=== PATIENT | female | born 1960 | race African-American/Black ===

== ENCOUNTER 2017-08-13 12:39 | Emergency (ER) | payer OTHER ==
[2017-08-13 12:45] VITALS: BP 113/74; PULSE 80; TEMP 98.5; BMI 22.1
--- NOTE | 2017-08-13 14:52 | PDOC ---
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 She states that something was painted in a closed room and she walked in, smelling the paint. No SOB, cp. No vision changes. No recent headaches.
--- NOTE | 2017-08-13 15:07 | PDOC ---
History of Present Illness - General Chief Complaint: Lightheaded Stated Complaint: DIZZINESS (WORK RELATED) Time Seen by Provider: 08/13/17 14:50 - History of Present Illness Initial Comments: 08/13/17 15:03 Patient is a 57 y.o. female with a PMH of Hypothyroidism, TIA, and Vertigo who presents to our ED today following an acute onset of lightheadedness and palpitations following inhalation of paint can fumes. 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 Patient denies any associated dypsnea, chest pain, or trauma. Patient states her palpitations resolved after 20 minutes of rest however she remains lightheaded prompting her visit to the ED. Allergies: IV contrast Surgical: Tubal Ligation Past History - Past Medical History Allergies/Adverse Reactions: Allergies Allergy/AdvReac Type Severity Reaction Status Date / Time Iodinated Contrast- Oral and Allergy Mild Hives Verified 08/13/17 12:44 IV Dye [IV Dye, Iodine Containing Contrast ] iodine Allergy Mild Hives Verified 08/13/17 12:44 Home Medications: Ambulatory Orders Diazepam [Valium] 5 mg PO BID PRN #6 tablet 03/20/12 Ibuprofen [Motrin] 400 mg PO QID PRN #20 tablet 03/20/12 Levothyroxine [Synthroid] 100 mcg PO DAILY 03/20/12 CVA: Yes (tia in 2003 no residual, VERTIGO) COPD: No Thyroid Disease: Yes - Suicide/Smoking/Psychosocial Hx Smoking Status: No Smoking History: Never smoked Number of Cigarettes Smoked Daily: 0 Hx Alcohol Use: No Drug/Substance Use Hx: No Substance Use Type: None Review of Systems - Review of Systems Constitutional: No: Chills, Fever HEENTM: No: Blurred Vision, Double Vision Respiratory: No: Shortness of Breath Cardiac (ROS): Yes: Lightheadedness, Palpitations ABD/GI: No: Constipated, Diarrhea, Nausea, Vomiting *Physical Exam - Vital Signs Last Vital Signs Temp Pulse Resp BP Pulse Ox 98.5 F 80 20 113/74 99 08/13/17 12:41 08/13/17 12:41 08/13/17 12:41 08/13/17 12:41 08/13/17 12:41 - Physical Exam General Appearance: Yes: Nourished, Appropriately Dressed HEENT: positive: EOMI, REBECA Neck: positive: Trachea midline, Supple Respiratory/Chest: positive: Lungs Clear Cardiovascular: positive: S1, S2 Gastrointestinal/Abdominal: positive: Normal Bowel Sounds, Soft Extremity: positive: Normal Capillary Refill, Normal Inspection, Normal Range of Motion Integumentary: positive: Normal Color, Dry, Warm Neurologic: positive: firearms sales associate II-XII NML intact, Fully Oriented, Alert, Motor Strength 5/5 Medical Decision Making - Medical Decision Making 08/13/17 15:13 Patient is a 57 y.o. female who presents to our ED after an isolated episode of lightheadedness and palpitation after inhaling paint fumes. On PE patient is hemodynamically and neurologically stable. Will obtain EKG to r/o arrythmia and ABG to r/o Carboxy/Methoglobenemia. Likely disposition is discharge home. 08/13/17 17:31 ABG shows O2 Saturation of 97%. EKG shows sinus bradycardia with no deviations , normal intervals, no ST changes, good R wave progression V1-V6. Patient to be discharged home with return precautions and instruction to f/u with PCP. *DC/Admit/Observation/Transfer Diagnosis at time of Disposition: Light-headed feeling - Discharge Dispostion Disposition: HOME Condition at time of disposition: Good Admit: No - Referrals - Patient Instructions Additional Instructions: Please return to the Emergency Department for any new/worsening/concerning symptoms. - Post Discharge Activity
[2017-08-13 16:11] LABS: ARTERIAL BLD GAS O2 SATURATION 97.4 % (90-98.9); ARTERIAL BLOOD GAS BASE EXCESS 0.3 meq/l (-2-2); ARTERIAL BLOOD GAS PCO2 40.7 mmHg (35-45); ARTERIAL BLOOD GAS PO2 92.5 mmHg (80-100)
[2017-08-13 16:13] LABS: ALLENS TEST POSITIVE
--- NOTE | 2017-08-14 12:32 | EKG ---
Test Reason : Blood Pressure : / mmHG Vent. Rate : 058 BPM Atrial Rate : 058 BPM P-R Int : 164 ms QRS Dur : 076 ms QT Int : 450 ms P-R-T Axes : 068 -06 033 degrees QTc Int : 441 ms SINUS BRADYCARDIA OTHERWISE NORMAL ECG WHEN COMPARED WITH ECG OF 20-MAR-2012 09:48, NO SIGNIFICANT CHANGE WAS FOUND Confirmed by PALOMA PÉREZ MD ([id number]) on 08/14/2017 12:31:57 PM Referred By: Confirmed By:PALOMA PÉREZ MD
== END 2017-08-13 18:02 | disposition home or self-care (01) ==
LOC: JER 12:39
DX: T59.891A Toxic effect of other specified gases, fumes and vapors, accidental (unintentional), initial encounter (principal); Y92.218 Other school as the place of occurrence of the external cause; Y93.89 Activity, other specified; Y99.0 Civilian activity done for income or pay
CPT/HCPCS: 36600; 82803; 93005; 93010; 99282-25

== ENCOUNTER 2019-04-17 18:28 | Emergency (ER) | payer BC ==
[2019-04-17 18:36] VITALS: BP 110/67; PULSE 63; TEMP 98.2; BMI 23.6
[2019-04-17] MEDS ORDERED: IBUPROFEN 600 MG TABLET (FP) PO ONE ×2 (20:06→20:11)
--- NOTE | 2019-04-17 20:11 | PDOC ---
History of Present Illness - General Chief Complaint: Pain Stated Complaint: X-RAY Time Seen by Provider: 04/17/19 18:42 History Source: Patient Exam Limitations: No Limitations Past History - Past Medical History Allergies/Adverse Reactions: Allergies Allergy/AdvReac Type Severity Reaction Status Date / Time Iodinated Contrast Media Allergy Mild Hives Verified 04/17/19 18:36 [IV Dye, Iodine Containing Contrast ] iodine Allergy Mild Hives Verified 04/17/19 18:36 IV dye Allergy Severe Uncoded 04/17/19 18:36 Home Medications: Ambulatory Orders Ibuprofen [Motrin -] 400 mg PO QID PRN #20 tablet 03/20/12 Levothyroxine [Synthroid -] 75 mcg PO DAILY 04/04/13 Meclizine HCl [Antivert -] 12.5 mg PO TID PRN #60 tablet 07/30/17 Cholecalciferol (Vitamin D3) [Vitamin D3 -] 10,000 unit PO UTDICT 09/16/17 Lobito-Essence 1 tab PO DAILY 09/16/17 [place]-3/Dha/Epa/Fish Oil [[place] 3 500 Softgel] 1 cap PO DAILY 09/16/17 Serovital 4 tab PO DAILY 09/16/17 Vistacal 1 tab PO BID 09/16/17 Anemia: No Asthma: No Cancer: No Cardiac Disorders: Yes (LOOP VALVE) CVA: Yes (TIA in 2003 no residual, VERTIGO) COPD: No CHF: No Dementia: No Diabetes: No GI Disorders: No Disorders: No HTN: No Hypercholesterolemia: No Liver Disease: No Seizures: No Thyroid Disease: Yes (HYPOTHYROID DISEASE) - Surgical History Abdominal Surgery: No Appendectomy: No Cardiac Surgery: No Cholecystectomy: No Lung Surgery: No Neurologic Surgery: No Orthopedic Surgery: No - Suicide/Smoking/Psychosocial Hx Smoking Status: No Smoking History: Never smoked Number of Cigarettes Smoked Daily: 0 Hx Alcohol Use: Yes Drug/Substance Use Hx: No Substance Use Type: None Hx Substance Use Treatment: No *Physical Exam - Vital Signs Last Vital Signs Temp Pulse Resp BP Pulse Ox 98.2 F 63 16 110/67 97 04/17/19 18:34 04/17/19 18:34 04/17/19 18:34 04/17/19 18:34 04/17/19 18:34 ED Treatment Course - RADIOLOGY Radiology Studies Ordered: Category Date Time Status HAND- RIGHT [RAD] Stat Radiology 04/17/19 18:42 Taken *DC/Admit/Observation/Transfer Diagnosis at time of Disposition: Hand pain, right - Discharge Dispostion Disposition: HOME Condition at time of disposition: Stable Decision to Admit order: No - Referrals Referrals: Paolo Spencer MD [Staff Physician] - - Patient Instructions Printed Discharge Instructions: DI for Hand Pain Additional Instructions: You have wrist pain I suspect it is carpel tunnel Wear the wrist splint at night Take 600mg of Motrin every 6 hours as needed for pain Follow up with orthopedics this week for further treatment options Return to the ER for any new or worsening symptoms - Post Discharge Activity
== END 2019-04-17 20:21 | disposition home or self-care (01) ==
LOC: JERFT 18:28
DX: M79.644 Pain in right finger(s) (principal); I25.10 Atherosclerotic heart disease of native coronary artery without angina pectoris; E03.9 Hypothyroidism, unspecified; Z86.73 Personal history of transient ischemic attack (TIA), and cerebral infarction without residual deficits
CPT/HCPCS: 73130-TC-RT-FY; 99282-25

== ENCOUNTER 2023-03-10 12:39 | Emergency (ER) | payer BC ==
[2023-03-10] MEDS ORDERED: ACETAMINOPHEN 1000 MG/100 ML BAG IVPB ONE (13:42)
[2023-03-10] MEDS ORDERED: SODIUM CHLORIDE 0.9% 500 ML INFUS.BAG IV ONE (13:42)
[2023-03-10] MEDS ORDERED: METOCLOPRAMIDE HCL INJECTION 10 MG/2 ML VIAL IVPUSH ONE (13:42)
[2023-03-10] MEDS ORDERED: LIDOCAINE 5% TOPICAL PATCH TP ONE (13:45)
[2023-03-10 13:49] VITALS: BMI 28.8
[2023-03-10] MEDS ORDERED: METOCLOPRAMIDE HCL INJECTION 10 MG/2 ML VIAL ONE (13:55)
[2023-03-10] MEDS ORDERED: LIDOCAINE 5% TOPICAL PATCH ONE (13:55)
[2023-03-10] MEDS ORDERED: ACETAMINOPHEN INJECTION 100 ML IVPB ONE (13:55)
[2023-03-10] MEDS ORDERED: MECLIZINE HCL 25 MG TABLET (FP) PO ONE ×2 (14:37→20:39)
[2023-03-10 14:42] LABS: BASO % 0.4 % (0-2.0); EOS % 0.1 % (0-4.5); HEMATOCRIT 40.9 % (32.4-45.2); HEMOGLOBIN 13.6 GM/dL (10.7-15.3); LYMPH % 11.1 % (8-40); MCH 33.1 pg (25.7-33.7); MCHC 33.4 g/dl (32.0-36.0); MEAN CELL VOLUME 99.1 fl (80-96); MEAN PLT VOLUME 10.4 fl (7.5-11.1); MONO % 3.6 % (3.8-10.2); NEUT % 84.8 % (42.8-82.8); PLATELET COUNT 234 10^3/uL (134-434); RBC 4.13 M/mm3 (3.60-5.2); WHITE BLOOD COUNT 9.1 K/mm3 (4.0-10.0)
[2023-03-10] MEDS ORDERED: MECLIZINE HCL 25 MG TABLET (FP) ONE ×2 (14:53→20:40)
[2023-03-10 15:02] LABS: POTASSIUM 4.1 mmol/L (3.5-5.1)
[2023-03-10 15:05] LABS: ALBUMIN 4.2 g/dl (3.4-5.0); BLOOD UREA NITROGEN 10.4 mg/dL (7-18); CALCIUM 9.6 mg/dL (8.5-10.1)
[2023-03-10 15:08] LABS: CREATININE 0.9 mg/dL (0.55-1.3)
[2023-03-10 15:35] LABS: PH,URINE 7.5 (5.0-8.0); URINE APPEARANCE CLEAR; URINE BILIRUBIN NEGATIVE (NEGATIVE); URINE COLOR YELLOW; URINE GLUCOSE (UA) NEGATIVE (NEGATIVE); URINE KETONE NEGATIVE (NEGATIVE); URINE LEUK ESTERASE NEGATIVE (NEGATIVE); URINE NITRITE NEGATIVE (NEGATIVE); URINE PROTEIN NEGATIVE (NEGATIVE); URINE UROBILINOGEN 0.2 mg/dL (0.2-1.0)
[2023-03-10 17:37] VITALS: RESP 16
[2023-03-10] MEDS ORDERED: KETOROLAC TROMETHAMINE 15 MG/ML VIAL IVPUSH ONE (18:17)
[2023-03-10] MEDS ORDERED: KETOROLAC TROMETHAMINE 15 MG/ML VIAL ONE (18:25)
[2023-03-10 18:55] VITALS: BP 138/89; PULSE 66; TEMP 98
[2023-03-10] MEDS ORDERED: LIDOCAINE PATCH REMOVAL MC SCH (22:00)
== END 2023-03-10 20:35 | disposition home or self-care (01) ==
LOC: JER 12:39
PROC: 3E033NZ Introduction of Analgesics, Hypnotics, Sedatives into Peripheral Vein, Percutaneous Approach (ICD-10-PCS; principal; 2023-03-10)
PROC: 3E033GC Introduction of Other Therapeutic Substance into Peripheral Vein, Percutaneous Approach (ICD-10-PCS; 2023-03-10)
PROC: 3E033GC Introduction of Other Therapeutic Substance into Peripheral Vein, Percutaneous Approach (ICD-10-PCS; 2023-03-10)
PROC: 3E033GC Introduction of Other Therapeutic Substance into Peripheral Vein, Percutaneous Approach (ICD-10-PCS; 2023-03-10)
DX: R53.1 Weakness (principal); R42 Dizziness and giddiness; R51.9 Headache, unspecified
CPT/HCPCS: 36415; 70450-TC; 71045-TC-FY; 72125-TC; 80053; 81003; 83690; 84484; 85025; 87086; 93005; 93010; 99285-25

== ENCOUNTER 2023-03-16 13:24 | Observation (INO) | payer BC ==
[2023-03-16 13:28] VITALS: BMI 27.4
[2023-03-16] MEDS ORDERED: LACTATED RINGERS SOLUTION 1000 ML INFUS.BAG IV ONE (15:08)
[2023-03-16] MEDS ORDERED: FAMOTIDINE 20 MG/50 ML IVPB 20 MG/50 ML MG IVPB ONE ×2 (15:08→15:56)
[2023-03-16] MEDS ORDERED: METOCLOPRAMIDE HCL INJECTION 10 MG/2 ML VIAL IVPUSH ONE (15:09)
[2023-03-16] MEDS ORDERED: METOCLOPRAMIDE HCL INJECTION 10 MG/2 ML VIAL ONE (15:56)
[2023-03-16 16:38] LABS: BASO % 0.5 % (0-2.0); EOS % 0.1 % (0-4.5); HEMOGLOBIN 13.9 GM/dL (10.7-15.3); LYMPH % 12.8 % (8-40); MCH 33.2 pg (25.7-33.7); MEAN CELL VOLUME 97.8 fl (80-96); MEAN PLT VOLUME 10.1 fl (7.5-11.1); MONO % 3.6 % (3.8-10.2); PLATELET COUNT 242 10^3/uL (134-434); RDW 13.8 % (11.6-15.6); WHITE BLOOD COUNT 6.8 K/mm3 (4.0-10.0)
[2023-03-16 16:51] LABS: INR 1.05 (0.83-1.09); PROTHROMBIN TIME (PATIENT) 12.2 SEC (9.7-13.0)
[2023-03-16 16:54] LABS: ACTIVATED PTT 32.1 SECONDS (25.2-36.5)
[2023-03-16 16:59] LABS: POTASSIUM 4.5 mmol/L (3.5-5.1)
[2023-03-16 17:01] LABS: CALCIUM 9.3 mg/dL (8.5-10.1)
[2023-03-16 17:02] LABS: ALBUMIN 4.3 g/dl (3.4-5.0); BLOOD UREA NITROGEN 12.3 mg/dL (7-18); MAGNESIUM 2.3 mg/dL (1.8-2.4)
[2023-03-16 17:05] LABS: CREATININE 0.9 mg/dL (0.55-1.3)
[2023-03-16 17:06] LABS: BILIRUBIN,TOTAL 0.9 mg/dL (0.2-1); TOT PROT 7.9 g/dl (6.4-8.2)
[2023-03-16] MEDS ORDERED: ACETAMINOPHEN 1000 MG/100 ML BAG IVPB ONE (18:11)
[2023-03-16 18:12] LABS: PH,URINE 6.5 (5.0-8.0); URINE APPEARANCE CLEAR; URINE BILIRUBIN NEGATIVE (NEGATIVE); URINE COLOR YELLOW; URINE GLUCOSE (UA) NEGATIVE (NEGATIVE); URINE KETONE NEGATIVE (NEGATIVE); URINE LEUK ESTERASE NEGATIVE (NEGATIVE); URINE NITRITE NEGATIVE (NEGATIVE); URINE PROTEIN NEGATIVE (NEGATIVE); URINE UROBILINOGEN 0.2 mg/dL (0.2-1.0)
[2023-03-16] MEDS ORDERED: ACETAMINOPHEN INJECTION 100 ML IVPB ONE (18:28)
[2023-03-17] MEDS ORDERED: ACETAMINOPHEN 1000 MG/100 ML BAG IVPB PRN (02:21)
[2023-03-17] MEDS ORDERED: ONDANSETRON 4 MG/2 ML VIAL IVPUSH PRN (02:22)
[2023-03-17] MEDS ORDERED: MECLIZINE HCL 25 MG TABLET (FP) ONE ×3 (02:46→12:42)
[2023-03-17] MEDS: MECLIZINE HCL 25 MG TABLET (FP) PO SCH ×3 (02:54→13:04)
[2023-03-17] MEDS: SODIUM CHLORIDE 1,000 ML IV SCH ×2 (02:54→21:40)
[2023-03-17 08:06] LABS: BASO % 0.5 % (0-2.0); HEMATOCRIT 37.9 % (32.4-45.2); HEMOGLOBIN 12.7 GM/dL (10.7-15.3); LYMPH % 20.7 % (8-40); MCH 33.3 pg (25.7-33.7); MCHC 33.4 g/dl (32.0-36.0); MEAN CELL VOLUME 99.4 fl (80-96); MEAN PLT VOLUME 10.4 fl (7.5-11.1); MONO % 9.8 % (3.8-10.2); PLATELET COUNT 228 10^3/uL (134-434); RBC 3.81 M/mm3 (3.60-5.2); RDW 13.5 % (11.6-15.6); WHITE BLOOD COUNT 4.2 K/mm3 (4.0-10.0)
[2023-03-17 08:39] LABS: ALBUMIN 3.6 g/dl (3.4-5.0); BLOOD UREA NITROGEN 10.8 mg/dL (7-18); CALCIUM 8.4 mg/dL (8.5-10.1); MAGNESIUM 2.3 mg/dL (1.8-2.4)
[2023-03-17] MEDS ORDERED: ENOXAPARIN NA (PORCINE) 40 MG/0.4 ML DISP.SYRIN SQ ONE (08:39)
[2023-03-17] MEDS ORDERED: LEVOTHYROXINE NA 100 MCG TABLET (FP) ONE (08:39)
[2023-03-17 08:42] LABS: CREATININE 0.9 mg/dL (0.55-1.3); PHOSPHOROUS 2.7 mg/dL (2.5-4.9)
[2023-03-17 08:43] LABS: BILIRUBIN,TOTAL 1.2 mg/dL (0.2-1); TOT PROT 6.7 g/dl (6.4-8.2)
[2023-03-17] MEDS: LEVOTHYROXINE NA 100 MCG TABLET (FP) PO SCH (08:51)
[2023-03-17 08:54] LABS: COCAINE, UR NEGATIVE (NEGATIVE); METHADONE, UR NEGATIVE (NEGATIVE); PHENCYCLIDINE,URINE NEGATIVE (NEGATIVE); URINE AMPHETAMINES NEGATIVE (NEGATIVE)
[2023-03-17 08:55] LABS: OPIATES, URI NEGATIVE (NEGATIVE); URINE BARBITURATES NEGATIVE (NEGATIVE)
[2023-03-17 09:13] LABS: URINE BENZODIAZEPINES NEGATIVE (NEGATIVE)
[2023-03-17] MEDS: ENOXAPARIN NA (PORCINE) 40 MG/0.4 ML DISP.SYRIN SQ SCH (09:23)
[2023-03-17] MEDS ORDERED: RIMEGEPANT SULFATE 75 MG TAB.RAPDIS SL ONE (19:23)
[2023-03-17] MEDS: TOPIRAMATE 25 MG TABLET PO SCH (22:19)
[2023-03-17] MEDS: PRAMIPEXOLE DIHYDROCHLORIDE 0.125 MG TABLET PO SCH (22:20)
[2023-03-18] MEDS: LEVOTHYROXINE NA 100 MCG TABLET (FP) PO SCH (06:59)
[2023-03-18] MEDS: PRAMIPEXOLE DIHYDROCHLORIDE 0.125 MG TABLET PO SCH ×3 (06:59→22:12)
[2023-03-18 09:23] LABS: IRON SERUM 54 ug/dL (50-175)
[2023-03-18 09:24] LABS: TOTAL IRON BINDING CAPACITY 252 ug/dL (250-450)
[2023-03-18] MEDS: ENOXAPARIN NA (PORCINE) 40 MG/0.4 ML DISP.SYRIN SQ SCH (10:25)
[2023-03-18] MEDS: TOPIRAMATE 25 MG TABLET PO SCH ×2 (10:25→22:12)
[2023-03-19] MEDS: PRAMIPEXOLE DIHYDROCHLORIDE 0.125 MG TABLET PO SCH (05:49)
[2023-03-19] MEDS: LEVOTHYROXINE NA 100 MCG TABLET (FP) PO SCH (06:01)
[2023-03-19 08:43] LABS: BASO % 0.3 % (0-2.0); EOS % 1.5 % (0-4.5); HEMATOCRIT 37.2 % (32.4-45.2); HEMOGLOBIN 12.9 GM/dL (10.7-15.3); LYMPH % 48.8 % (8-40); MCH 33.5 pg (25.7-33.7); MCHC 34.6 g/dl (32.0-36.0); MEAN CELL VOLUME 96.8 fl (80-96); MEAN PLT VOLUME 9.9 fl (7.5-11.1); NEUT % 40.4 % (42.8-82.8); PLATELET COUNT 223 10^3/uL (134-434); RBC 3.84 M/mm3 (3.60-5.2); RDW 14.1 % (11.6-15.6); WHITE BLOOD COUNT 3.9 K/mm3 (4.0-10.0)
[2023-03-19] MEDS ORDERED: TOPIRAMATE 25 MG TABLET PO SCH (09:45)
[2023-03-19] MEDS ORDERED: PRAMIPEXOLE DIHYDROCHLORIDE 0.125 MG TABLET PO SCH ×2 (09:45→10:00)
[2023-03-19] MEDS ORDERED: PRAMIPEXOLE DIHYDROCHLORIDE 0.25 MG TABLET PO SCH (10:00)
[2023-03-19] MEDS: ENOXAPARIN NA (PORCINE) 40 MG/0.4 ML DISP.SYRIN SQ SCH (10:50)
[2023-03-19 12:27] LABS: POTASSIUM 3.9 mmol/L (3.5-5.1)
[2023-03-19] MEDS ORDERED: POLYETHYLENE GLYCOL (HEALTHYLAX) 3350 17 GM PACKET PO ONE (13:30)
[2023-03-19 13:32] LABS: BLOOD UREA NITROGEN 12.4 mg/dL (7-18); CALCIUM 8.5 mg/dL (8.5-10.1)
[2023-03-19 13:33] LABS: ALBUMIN 3.6 g/dl (3.4-5.0)
[2023-03-19 13:36] LABS: BILIRUBIN,TOTAL 1.1 mg/dL (0.2-1); TOT PROT 6.7 g/dl (6.4-8.2)
[2023-03-19 14:00] VITALS: BP 123/85; PULSE 70; RESP 24; TEMP 97.8
== END 2023-03-19 15:36 | disposition home or self-care (01) ==
LOC: JER 13:24 → JERBED 03-17 00:15 → J4W 03-17 17:17
PROVIDERS: ADMIT Internal Medicine; ATTEND Internal Medicine
PROC: 3E033NZ Introduction of Analgesics, Hypnotics, Sedatives into Peripheral Vein, Percutaneous Approach (ICD-10-PCS; principal; 2023-03-17)
PROC: 3E033GC Introduction of Other Therapeutic Substance into Peripheral Vein, Percutaneous Approach (ICD-10-PCS; 2023-03-17)
PROC: 3E023GC Introduction of Other Therapeutic Substance into Muscle, Percutaneous Approach (ICD-10-PCS; 2023-03-17)
PROC: 3E0337Z Introduction of Electrolytic and Water Balance Substance into Peripheral Vein, Percutaneous Approach (ICD-10-PCS; 2023-03-17)
DX: G43.909 Migraine, unspecified, not intractable, without status migrainosus (principal); E03.9 Hypothyroidism, unspecified; R94.31 Abnormal electrocardiogram [ECG] [EKG]; R11.2 Nausea with vomiting, unspecified; R19.7 Diarrhea, unspecified; G89.29 Other chronic pain; M54.2 Cervicalgia; Z86.73 Personal history of transient ischemic attack (TIA), and cerebral infarction without residual deficits; Z91.041 Radiographic dye allergy status
CPT/HCPCS: 0241U-QW; 36415; 70553-TC; 72141-TC; 74176-TC; 80053; 80307; 81003; 83540; 83550; 83690; 83735; 84100; 84484; 85025; 85610; 85730; 87086; 93005; 93010; 93306-TC; 97116-GP; 97161-GP; 99285-25; A9579; G0378